=== PATIENT | female | born 1945 | race Caucasian/White ===

== ENCOUNTER → 2019-05-15 | Outpatient (CLI) | payer MEDICARE, BC ==
--- NOTE | 2019-05-15 15:17 | RAD ---
Chest radiograph 05/15/2019 12:00 AM INDICATION: Long-term use of medication. Rheumatoid arthritis. COMPARISON: December 26, 2013 TECHNIQUE: Frontal and lateral views of the chest are provided. FINDINGS: The cardiomediastinal silhouette is within normal limits. There are no pleural effusions. There is no pulmonary vascular congestion. There is no pneumothorax. The lungs are clear. No significant osseous abnormality is identified. Cholecystectomy changes are identified in the right upper quadrant abdomen. IMPRESSION: No acute cardiopulmonary process. Electronically signed by: Cherrie Cho MD (05/15/2019 3:14 PM) [id number]
== END | disposition home or self-care (01) ==
LOC: DXRAD 11:29
PROVIDERS: ATTEND Nurse Practitioner Gerontology
DX: M06.9 Rheumatoid arthritis, unspecified (principal); Z79.899 Other long term (current) drug therapy; Z90.49 Acquired absence of other specified parts of digestive tract
CPT/HCPCS: 71046

== ENCOUNTER → 2021-03-10 | Outpatient (CLI) | payer MEDICARE, BC ==
--- NOTE | 2021-03-10 15:26 | RAD ---
INDICATION: Screening for osteopenia/osteoporosis. Postmenopausal evaluation. COMPARISON: None. TECHNIQUE: Bone densitometry was performed through the lumbar spine and proximal femur. IMPRESSION: Lumbar Spine: BMD: 1.17 T-Score: -0.1 Range: Normal Proximal Femur: BMD: 0.75 T-Score: -1.7 Range: Osteopenic World Health Organization Criteria for Bone Density: T-Score: > -1.0: Normal Range < -1.0 to -2.5: Osteopenic Range < -2.5: Osteoporotic Range Electronically signed by: Sky Trinh MD (03/10/2021 3:24 PM) [id number]
== END ==
LOC: DXRAD 13:36
PROVIDERS: ATTEND Internal Medicine Rheumatology
DX: M85.88 Other specified disorders of bone density and structure, other site (principal)
CPT/HCPCS: 77080

== ENCOUNTER 2021-04-05 10:40 | Emergency (ER) | payer MEDICARE, BC ==
[~2021-04-05] VITALS: Ht 167.6 cm; Wt 69.0 kg
[2021-04-05 10:54] VITALS: BP 146/68
--- NOTE | 2021-04-05 11:09 | PHYS DOC ---
Past History Past Surgical History: Cholecystectomy, Other Additional Past Surgical Histo: Colon Alcohol Use: None General Adult EDM: Chief Complaint: INSECT BITE HPI: HPI: 75-year-old female presents with right third toe swelling and erythema. The patient was diagnosed with cellulitis of this toe 1 week ago. She has been taking Keflex as prescribed. She tells me that it has been getting worse better. She is not a diabetic but she is on rheumatoid arthritis medication, Remicade. She denies fever or chills. She had a similar erythematous area on the lateral left ankle which has improved. She is able to walk and it has not prevented her from activities of daily living. She has no other complaints at this time. Review of Systems: Review of Systems: Constitutional: Denies fever or chills Eyes: Denies change in visual acuity HENT: Denies nasal congestion or sore throat Respiratory: Denies cough or shortness of breath Cardiovascular: Denies chest pain or edema GI: Denies abdominal pain, nausea, vomiting, bloody stools or diarrhea : Denies dysuria Musculoskeletal: Denies back pain or joint pain Integument: Red and swollen right third toe Neurologic: Denies headache, focal weakness or sensory changes Endocrine: Denies polyuria or polydipsia Lymphatic: Denies swollen glands Psychiatric: Denies depression or anxiety Allergies: Allergies: Allergies Coded Allergies Type Severity Reaction Last Updated Verified No Known Drug Allergies 04/05/21 No Physical Exam: PE: Constitutional: Well developed, well nourished, no acute distress, non-toxic appearance. [] HENT: Normocephalic, atraumatic, bilateral external ears normal, oropharynx moist, no oral exudates, nose normal. [] Eyes: PERRLA, EOMI, conjunctiva normal, no discharge. [] Neck: Normal range of motion, no tenderness, supple, no stridor. [] Cardiovascular:Heart rate regular rhythm, no murmur [] Lungs & Thorax: Bilateral breath sounds clear to auscultation [] Abdomen: Bowel sounds normal, soft, no tenderness, no masses, no pulsatile masses. [] Skin: Hot, erythematous, swollen third digit of the right foot with spreading cellulitis 3cm up the foot [] Back: No tenderness, no CVA tenderness. [] Extremities: No tenderness, no cyanosis, no clubbing, ROM intact, no edema. [] Neurologic: Alert and oriented X 3, normal motor function, normal sensory function, no focal deficits noted. [] Psychologic: Affect normal, judgement normal, mood normal. [] Current Patient Data: Vital Signs: Vital Signs Date Time Temp Pulse Resp B/P (MAP) Pulse Ox O2 Delivery O2 Flow Rate FiO2 04/05/21 10:54 98.4 98 16 146/68 98 Room Air EKG: EKG: [] Radiology/Procedures: Radiology/Procedures: [] Impressions: XR RT TOE 2+ VIEWS History: Reason: cellulitis, rule out osteomyelitis / Spl. Instructions: / History: Technique: AP view the foot and 3 additional views of the digits Comparison: None. Findings: No dislocation. No acute fracture. No radiographic evidence of osteomyelitis. Impression: 1. No radiographic evidence of osteomyelitis. If persistent clinical concern, MRI can better evaluate. Electronically signed by: Vinicio De Jeuss DO (04/05/2021 11:36 AM) [facility] DICTATED AND SIGNED BY: VINICIO DE JESUS DO DATE: 04/05/21 1133 CC: PAULA BROWN DO; CHRIS GIBBONS ~MTH0 0 Heart Score: C/O Chest Pain: N/A Risk Factors: Risk Factors: DM, Current or recent (<one month) smoker, HTN, HLP, family history of CAD, obesity. Risk Scores: Score 0 - 3: 2.5% MACE over next 6 weeks - Discharge Home Score 4 - 6: 20.3% MACE over next 6 weeks - Admit for Clinical Observation Score 7 - 10: 72.7% MACE over next 6 weeks - Early Invasive Strategies Course & Med Decision Making: Course & Med Decision Making Pertinent Labs and Imaging studies reviewed. (See chart for details) The patient's x-ray is negative for osteomyelitis at this time. I do not have significant concerns so I do not think an MRI is necessary. I will add Bactrim DS to her regimen. I have advised her that if it continues to get worse over the next couple days, she may need to come back to the hospital for admission and IV antibiotics. She states verbal understanding. I will give her first dose of Bactrim DS 2 tabs in the ER. She is stable for discharge at this time. [] Delbert Disclaimer: Delbert Disclaimer: This electronic medical record was generated, in whole or in part, using a voice recognition dictation system. Departure Departure: Impression: Primary Impression: Cellulitis of toe of right foot Disposition: HOME / SELF CARE / HOMELESS Condition: STABLE Referrals: CHRIS GIBBONS (PCP) Patient Instructions: Cellulitis, [id number] Scripts Sulfamethoxazole/Trimethoprim (BACTRIM DS TABLET) 1 Each Tablet 1 TAB PO BID for cellulitis for 10 Days, #20 TAB 0 Refills Prov: PAULA BROWN DO 04/05/21 PAULA BROWN DO Apr 05, 2021 11:09
--- NOTE | 2021-04-05 11:38 | RAD ---
XR RT TOE 2+ VIEWS History: Reason: cellulitis, rule out osteomyelitis / Spl. Instructions: / History: Technique: AP view the foot and 3 additional views of the digits Comparison: None. Findings: No dislocation. No acute fracture. No radiographic evidence of osteomyelitis. Impression: 1. No radiographic evidence of osteomyelitis. If persistent clinical concern, MRI can better evaluat e. Electronically signed by: Vinicio Whaley DO (04/05/2021 11:36 AM) [facility]
[2021-04-05] MEDS ORDERED: SMZ/TMP 800/160MG TABLET. PO ONE (11:45)
[2021-04-05] MEDS ORDERED: SULF1TAB24 PO (11:49)
== END 2021-04-05 12:04 | disposition home or self-care (01) ==
LOC: ER 10:40
DX: L03.115 Cellulitis of right lower limb (principal)
CPT/HCPCS: 73660; 99283